=== PATIENT | female | born 1930 | race Caucasian/White ===

== ENCOUNTER → 2016-07-23 19:07 | Outpatient (CLI) | payer MEDICARE, OTHER ==
[2010-10-17 07:10] VITALS: BMI 26.3
== END | disposition home or self-care (01) ==
LOC: D.LABREF 19:07
DX: L02.611 Cutaneous abscess of right foot (principal)

== ENCOUNTER 2017-07-14 10:48 | Outpatient (CLI) | payer MEDICARE, OTHER ==
[~2017-07-14] VITALS: Ht 162.6 cm; Wt 77.3 kg
--- NOTE | ~2017-07-14 | HEMODYNAMI ---
PATIENT:LISANDRA BAZZI MEDICAL RECORD: [id number] : 28 LOCATION:[facility] ADMISSION DATE: 07/14/17 Generatedon:07/14/201714:03 Patient name: LISANDRA BAZZI Patient #: [id number] SSN: : 1930 Date of study: 07/14/2017 Page: Of Hemodynamic Procedure Report Patient Data Patient Demographics Procedure consent was obtained First Name: LISANDRA Gender: Female Last Name: JLUIS : 1930 Middle Initial: L Age: 86 year(s) Patient #: [id number] Race: Additional ID: [id number] Contact details [address]: [address] [place] [address] State: [place] City: [place] Zip code: [address] Admission Admission Data Admission Date: 07/14/2017 Admission Time: 10:48 Lab Results Lab Result Date: 07/14/2017 Lab Result Time: 0:00 Biochemistry Name Units Result Min Max BUN mg/dl 14 --(--*-)-- 7 18 Creatinine mg/dl 0.6 --(*---)-- 0.6 1.3 CBC Name Units Result Min Max Hemoglobin g/dl 16.3 --(--*-)-- 13.5 17.5 Procedure Procedure Types Cath Procedure Diagnostic Procedure Cardioversion External Procedure Description Procedure Date Procedure Date: 07/14/2017 Procedure Start Time: 13:48 Procedure End Time: 13:57 Procedure Staff Name Function Martin Zapata MD Performing Physician Dorina Leigh RT Monitor Sony Akbar RN Nurse Jasbir Ellison CRNA Additional personnel Procedure Data Cath Procedure Fluoroscopy Diagnostic fluoroscopy Total fluoroscopy Time: 0 time: 0 min min Diagnostic fluoroscopy Total fluoroscopy dose: 0 dose: 0 mGy mGy Contrast Material Contrast Material Type Amount (ml) Isovue 300 0 Estimated blood loss: 0 ml Hemodynamics Rest HGB: 16.3 (g/dl) Heart Rate: 85 (bpm) Snapshots Pre Cath Intra NCS Post Cath Vital Signs Time Heart Resp SPO2 etCO2 NIBP (mmHg) Rhythm Pain Sedation Rate (ipm) (%) (mmHg) Status Level (bpm) 13:45:52 70 28 96 0 Measuring NSR 0 (11) 10(A) , No pain 13:47:06 64 19 95 15.6 167/98(146) NSR 0 (11) 10(A) , No pain 13:52:05 79 15 98 15.6 Measuring NSR 0 (11) 10(A) , No pain 13:52:09 67 18 98 17.1 120/85(112) NSR 0 (11) 10(A) , No pain 13:57:55 41 16 96 0 140/57(111) NSR 0 (11) 10(A) , No pain Procedure Log Time Note 13:14:25 Informed consent obtained and on chart 13:14:30 Diagnostic Cath Status : Elective 13:14:45 Sony Akbar RN sent for patient. Start room use. 13:14:46 Time tracking: Regular hours (M-F 7:00 - 5:00) 13:14:50 Plan of Care:Hemodynamics will remain stable., Cardiac rhythm will remain stable., Comfort level will be maintained., Respiratory function will remain adequate., Patient/ family verbilizes understanding of procedure., Procedure tolerated without complication., Recovers from procedure without complications.. 13:41:19 Patient received from Pre/Post Procedure Room to [facility] 2 Alert and oriented. Tansferred to table in Supine position. 13:41:20 Warm blankets applied, and nya hugger turned on for patient comfort. 13:41:21 Correct patient and procedure confirmed by team. 13:41:21 ECG and BP/O2 sat monitors applied to patient. 13:44:04 Vital chart was started 13:44:06 Baseline sample Acquired. 13:44:09 Rhythm: atrial fibrillation 13:44:10 Full Disclosure recording started 13:44:14 H&P Date Dictated: 07/14/2017 Within 30 days and on chart., H&P Addendum completed by physician on day of procedure. (MUST COMPLETE FOR ALL OUTPATIENTS). 13:44:15 Pre-procedure instructions explained to patient. 13:44:16 Pre-op teaching completed and patient verbalized understanding. 13:44:17 Family in waiting room. 13:44:18 Patient NPO since Midnight. 13:44:21 Is the patient allergic to Iodine/contrast media? No. 13:44:22 Was the patient premedicated? No 13:45:45 Is patient on blood thinner?Yes 13:45:49 ACC The patient was administered the following blood thiners within the last 24 hours: ACCPradaxa 13:45:51 Patient diabetic? No. 13:45:54 Previous problem with sedation/anesthesia? No ? 13:45:55 Snore? Yes 13:45:56 Sleep apnea? No 13:45:57 Deviated septum? No 13:45:57 Opens mouth fully? Yes 13:45:58 Sticks out tongue? Yes 13:46:00 Airway obstruction? No ? 13:46:07 Dentures? Yes in tight 13:46:15 Pre procedure: right dorsailis pedis pulse 2+ Normal; easily identifiable; not easily obliterated 13:46:18 Pre procedure: left dorsailis pedis pulse 2+ Normal; easily identifiable; not easily obliterated 13:46:21 Patient pain scale 0/10 ?. 13:46:52 IV patent on arrival in left forearm with 0.9% NaCl at O. 13:47:04 Lab results completed and on chart. 13:47:24 Alarms reviewed by RDiego N. 13:47:31 Sharps counted by scrub and verified by R.N. 13:47:38 Physician arrived 13:47:39 --------ALL STOP TIME OUT------ 13:47:39 Final Timeout: patient, procedure, and site verified with staff and physician. All members of the team are in agreement. 13:47:44 Physical assessment completed. ASA score P 2 - A patient with mild systemic disease as per Martin Zapata MD. 13:47:48 Sedation plan: TIVA Medication:Propofol 13:48:14 Jasbir Ellison CRNA present and monitoring patient for TIVA. 13:48:37 Procedure started. 13:48:39 Quick combo pads placed on patients chest and back. 13:48:48 Defibrillator synced and charged to 200 Joules. 13:50:27 Lab Result : Hemoglobin 16.3 g/dl 13:50:27 Lab Result : Creatinine 0.6 mg/dl 13:50:27 Lab Result : BUN 14 mg/dl 13:51:10 Shock delivered. 13:54:17 Patient cardioverted to sinus rhythm . 13:54:28 PAC's present 13:54:35 Procedure ended.(Physican Out) 13:54:52 Fluoroscopy time 00.00 minutes. 13:54:55 Fluoroscopy dose: 0 mGy 13:54:55 Flurop Dose total: 0 13:55:00 Contrast amount:Isovue 300 0ml. 13:55:01 Sharps counted by scrub and verified by R.N. 13:55:03 Insertion/operative site no bleeding no hematoma. 13:55:05 Post Procedure Pulses reassessed and unchanged 13:55:11 Estimated blood loss: 0 ml 13:55:13 Post procedure instruction explained to patient.Patient verbalizes understanding. 13:55:13 Patient needs reinforcement of post procedure teaching. 13:55:18 Procedure and supply charges have been captured, reviewed, submitted and are correct. 13:55:26 Vital chart was stopped 13:55:27 See physician's report for complete and final results. 13:56:57 Patient transfered to Pre/Post Procedure Room with Stretcher. 13:56:59 Procedure ended. 13:56:59 Full Disclosure recording stopped 13:57:03 End room use (Document Last) Signature Audit [place] Stage Time Signature Unsigned Intra-Procedure 07/14/2017 Dorina Leigh 2:03:38 PM RT(R) Signatures Monitor : Dorina Leigh RT Signature : Date : Time : [facility] [address] [facility] [place] [address]
[2017-07-14] MEDS ORDERED: HCTZ25 MG PO (11:14)
[2017-07-14] MEDS ORDERED: LIPITOR10 MG PO (11:14)
[2017-07-14] MEDS ORDERED: ZESTRIL40 MG PO (11:14)
[2017-07-14] MEDS ORDERED: TEKTURNA150 MG PO (11:15)
[2017-07-14] MEDS ORDERED: BETAPACE 120 M120 MG PO (11:15)
[2017-07-14] MEDS ORDERED: PRADAXA75 MG PO (11:16)
[2017-07-14 11:20] VITALS: BP 156/81; Ht 162.6 cm; Wt 77.3 kg
[2017-07-14 11:30] LABS: BASOPHILS 0.3 % (0-2); EOSINOPHILS 1.6 % (0-7); HEMATOCRIT 48.2 % (36.0-48.0); HEMOGLOBIN 16.3 g/dL (12-16); IMMATURE GRANULOCYTES 0.2 % (0-5); LYMPHOCYTES 19.8 % (15-50); MCH 30.8 pg (26.0-34.0); MCHC 33.8 g/dL (31.0-37.0); MCV 90.9 fL (80.0-100.0); MONOCYTES 9.9 % (2-11); NEUTROPHILS 68.2 % (40-80); PLATELET COUNT 246 10x3/uL (130-400); WBC 9.8 10x3/uL (4.8-10.8)
[2017-07-14 11:36] LABS: INR 1.39 (0.85-1.17); PROTIME 16.6 SECONDS (11.6-15.0)
[2017-07-14 11:37] LABS: CALC OSMOLALITY 280 mosm/kg (275-300); CALCIUM 9.2 mg/dL (8.5-10.1); CARBON DIOXIDE 28.2 mmol/L (21.0-32.0); CHLORIDE - SERUM 102 mmol/L (98-107); CREATININE - SERUM 0.6 mg/dL (0.6-1.3); GLUCOSE 109 mg/dL (74-106); SODIUM 140 mmol/L (136-145); UREA NITROGEN 14 mg/dL (7-18); eGFR NON AFRICAN AMERICAN > 90 mL/min (90-120)
== END 2017-07-14 15:20 | disposition home or self-care (01) ==
LOC: D.CATH 10:48
PROVIDERS: Internal Medicine Cardiovascular Disease
DX: I48.91 Unspecified atrial fibrillation (principal); Z01.812 Encounter for preprocedural laboratory examination

== ENCOUNTER → 2018-08-18 12:27 | Outpatient (CLI) | payer MEDICARE, OTHER ==
[2017-07-14 11:20] VITALS: BMI 29.2
[~2018-08-18 12:27] MED LIST: BETAPACE 120 M120 MG PO; HCTZ25 MG PO; LIPITOR10 MG PO; PRADAXA75 MG PO; TEKTURNA150 MG PO; ZESTRIL40 MG PO
== END | disposition home or self-care (01) ==
LOC: D.HCCARDIO 12:27
PROVIDERS: ATTEND Internal Medicine Cardiovascular Disease
DX: I48.91 Unspecified atrial fibrillation (principal)